=== PATIENT | male | born 1960 | race Caucasian/White ===

== ENCOUNTER → 2018-01-24 09:01 | Outpatient (CLI) | payer OTHER, SELFPAY ==
[2018-01-24 12:07] LABS: Absolute Lymphocyte Count 1.07 X10^3/ul (0.83-4.51); Absolute Neutrophil Count 2.5 X10^3/uL (2.0-7.7); Basophil# 0.03 X10^3/uL; Basophil% 0.7 % (0-1); Eosinophil# 0.19 X10^3/uL; Eosinophils% 4.7 % (0-5); Hematocrit 45.9 % (40-54); Hemoglobin 15.6 g/dl (13.0-16.5); Lymphocyte # 1.07 X10^3/ul (4.0); Lymphocyte % 26.6 % (19-41); Mean Corpuscular Hgb 28.3 pg (27.0-32.0); Mean Corpuscular Volume 83.3 fL (80-94); Mean Platelet Vol. 11.5 fl (6.2-12.0); Monocyte# 0.26 X10^3/uL; Monocyte% 6.5 % (0-10); Neutrophil # 2.47 X10^3/uL (2.7-7.7); Neutrophil % 61.3 % (47-70); Platelet Count 162 K/mm3 (150-450); RBC Distribution Width CV 13.8 % (11.6-14.6); Red Blood Count 5.51 M/mm3 (4.6-6.2)
[2018-01-24 12:08] LABS: POSITIVE COUNT NO; POSITIVE DIFFERENTIAL NO; POSITIVE MORPHOLOGY NO
[2018-01-24 12:23] LABS: ALB/GLOB Ratio 1.2 RATIO (0.9-2.4); AST(SGOT) 27 U/L (15-37); Alanine Aminotransfer ALT/SGPT 46 U/L (16-61); Albumin, Serum 4.2 g/dL (3.2-5.0); Alkaline Phosphatase 77 U/L (45-117); Anion Gap 10 (5-15); BUN 14 mg/dL (7-18); BUN/Creat Ratio 12.8 RATIO (10-20); Calcium,Total 8.7 mg/dL (8.5-10.1); Chloride 107 mmol/L (98-107); Cholesterol 162 mg/dL (200); Creatinine, Serum 1.09 mg/dL (0.70-1.30); EST Glomerular Filtration Rate 74 mL/min (>60); Est Glom Filt Rate - Afr Amer 89 mL/min (>60); Globulin 3.4 g/dL (2.2-4.2); Glucose 86 mg/dL (74-106); High Density Lipoprotein 37 mg/dL; PSA,Total - Annual Screen 0.38 ng/mL (0.00-4.00); Protein, Total 7.6 g/dL (6.4-8.2); Sodium Level 143 mmol/L (136-145); Triglycerides 148 mg/dL; Very Low Density Lipoprotein 30 mg/dL (5-40)
[2018-01-31 12:08] LABS: Testosterone, Free 8.43 ng/dL (5.00-21.00)
[2018-01-31 14:23] LABS: Testosterone, % Free 2.57 % (1.50-4.20); Testosterone, Total 328 ng/dL (264-916)
== END ==
PROVIDERS: Family Provider Family Medicine; PCP Family Medicine; Visit Provider Family Medicine
DX: Z00.01 Encounter for general adult medical examination with abnormal findings (principal); E29.1 Testicular hypofunction; Z12.5 Encounter for screening for malignant neoplasm of prostate
CPT/HCPCS: 36415; 80053; 80061; 84153; 84402; 84403; 85025; G0103

== ENCOUNTER → 2018-10-31 06:35 | Outpatient (CLI) | payer OTHER, SELFPAY ==
--- NOTE | 2018-10-31 06:45 | MRI_ITS ---
STUDY: MRI CERVICAL SPINE WITHOUT CONTRAST REASON FOR EXAM: Male, 58 years old. Numbness in neck and arms for several years TECHNIQUE: Standardized fat and water weighted pulse sequences were obtained in the sagittal and axial planes. COMPARISON: None FINDINGS: There is no tonsillar ectopia. There is a normal cervicomedullary junction. The cervical spinal cord is of normal morphology and signal intensity and shows no evidence of myelomalacia, contusion or myelopathy. The cervical spine itself shows normal alignment and curvature with no acute fractures or dislocations and no abnormal marrow infiltrative processes. There is disc space narrowing at C6-C7 with a spur from the anterior inferior corner of C6 The craniovertebral junction is normal. The tectorial membrane is intact. C2-3: Normal endplates. Normal disc height, signal and morphology. Normal central canal and intervertebral neural foramina. C3-4: Normal endplates. Normal disc height, signal and morphology. Normal central canal and intervertebral neural foramina. C4-5: Normal endplates. Normal disc height, signal and morphology. Normal central canal and intervertebral neural foramina. C5-6: Normal endplates. Normal disc height, signal and morphology. Normal central canal and intervertebral neural foramina .. C6-7: Disc space narrowing with a spur from the anterior inferior corner of C6. An uncinate spur narrows the right intervertebral foramen. No focal disc protrusion or extrusion. C7-T1: Normal endplates. There is 8.5 x 3.4 mm right paracentral disc protrusion with impingement on the exiting T1 nerve root.. Normal central canal and intervertebral neural foramina.. A disc protrusion/extrusion is noted in the sagittal sequences at T2-T3. 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 An Uncinate spur narrows the right intervertebral foramen at the C6-C7 level. An 8.5 x 3.4 mm right paracentral disc protrusion at the C7-T1 level with impingement on the exiting right T1 nerve roots. There is disc protrusion or extrusion at the T2-T3 level. It has a of 8.7 mm and an anteroposterior dimension of 4.6 mm. No axial images at the site were included in the examination Electronically Signed: Cayetano Hill MD at 9:30 EDT Tel , Service support ,
--- NOTE | 2018-10-31 07:20 | RAD_ITS ---
STUDY: X-RAY - ORBITS REASON FOR EXAM: Male, 58 years old. This study is being performed as a clearance examination for exclusion of orbital metal, prior to the performance of an MRI examination. TECHNIQUE: 2 view(s) of the orbits were obtained. COMPARISON: None. FINDINGS: Normal bilateral orbits without a metallic orbital foreign body. Normal visualized facial bones. Normal paranasal sinuses. The soft tissue structures are unremarkable. RAD/Orbits for Foreign Body IMPRESSION: No demonstrated metallic orbital foreign body. The patient is cleared for an MRI examination. Electronically Signed: Rohit Draper, at 8:22 EDT , Service support ,
[2018-10-31 07:35] LABS: Erythrocyte Sedimentation Rate 4 mm/hr (0-20)
[2018-10-31 07:53] LABS: ALB/GLOB Ratio 1.2 RATIO (0.9-2.4); AST(SGOT) 27 U/L (15-37); Alanine Aminotransfer ALT/SGPT 42 U/L (16-61); Albumin, Serum 3.9 g/dL (3.2-5.0); Alkaline Phosphatase 76 U/L (45-117); Anion Gap 7 (5-15); BUN 13 mg/dL (7-18); BUN/Creat Ratio 11.4 RATIO (10-20); CRP < 2.90 mg/L (0.0-3.0); Calcium,Total 8.5 mg/dL (8.5-10.1); Chloride 110 mmol/L (98-107); Creatinine, Serum 1.14 mg/dL (0.70-1.30); EST Glomerular Filtration Rate 70 mL/min (>60); Est Glom Filt Rate - Afr Amer 85 mL/min (>60); Globulin 3.3 g/dL (2.2-4.2); Glucose 107 mg/dL (74-106); Potassium 4.2 mmol/L (3.5-5.1); Protein, Total 7.2 g/dL (6.4-8.2); Rheumatoid Factor < 10.0 IU/mL (<15); Sodium Level 143 mmol/L (136-145); Thyroid Stim Hormone (TSH) 2.47 uIU/mL (0.358-3.74)
[2018-11-03 14:07] LABS: PROEL- A/G Ratio 1.6 (0.7-1.7); PROEL- Albumin 4.2 g/dL (2.9-4.4); PROEL- Alpha-1 Globulin 0.2 g/dL (0.0-0.4); PROEL- Alpha-2 Globulin 0.6 g/dL (0.4-1.0); PROEL- Beta Globulin 1.1 g/dL (0.7-1.3); PROEL- Gamma Globulin 0.9 g/dL (0.4-1.8); PROEL- Globulin, Total 2.7 g/dL (2.2-3.9); PROEL- TOTAL PROTEIN 6.9 g/dL (6.0-8.5)
[2018-11-04 12:03] LABS: ANTINUCLEAR ANTIBODIES DIRECT Negative (Negative)
[2018-11-04 12:08] LABS: PROELU- Albumin, Urine 26.4 % (.); PROELU- Alpha-1-Globulin,Ur 1.4 % (.); PROELU- Alpha-2-Globulin,Ur 11.7 % (.); PROELU- Beta Globulin, Ur 24.3 % (.); PROELU- Gamma Globulin, Ur 36.3 % (.); Total Protein, Ur 5.5 mg/dL (Not Estab.)
== END ==
PROVIDERS: Family Provider Family Medicine; PCP Family Medicine; Referring Provider Psychiatry & Neurology Neurology; Visit Provider Psychiatry & Neurology Neurology
DX: M54.16 Radiculopathy, lumbar region (principal); G90.09 Other idiopathic peripheral autonomic neuropathy
CPT/HCPCS: 36415; 70030; 72141; 80053; 84165; 84166; 84443; 85652; 86038; 86140; 86431

== ENCOUNTER → 2018-12-09 06:53 | Outpatient (CLI) | payer OTHER, SELFPAY ==
--- NOTE | 2018-12-09 09:52 | NEURO_ITS ---
NCS and/or EMG Patient Report Ordering Doctor: Manuelito Gutierrez - Please copy to Dr. Santiago DATE OF SERVICE: 12/09/18 This is a right upper and right lower extremity nerve conduction study and EMG performed on this 58-year-old male who noted initially in August 2018 tongue biting and has noted atrophy on the right side of his tongue and tongue fasciculations. The tongue biting has improved. He also has decreased sensation in his hands and feet bilaterally and is concerned with ALS. There is a family history of neuropathy in his mother. He is not diabetic and does not drink significant quantities of alcohol. On examination he has hammertoe deformities bilaterally in his lower extremities and osteoarthritic changes. He has no upper motor neuron signs and no hyperreflexia. MRI of his cervical spine performed 10/31 was reviewed which shows mild arthritic changes but no significant canal or foraminal stenosis. Right upper and right lower extremity nerve conduction study is performed. In the right lower extremity the sural sensory response is absent, and there is moderate to severe slowing of the common peroneal motor response and the tibial motor response. These nerves also demonstrate severe reduction of amplitude and prolongation of distal latencies. The F waves from the tibial and common peron eal nerves are severely prolonged and the H reflex responses from the bilateral tibial nerves are reduced. In the right upper extremity there is mild prolongation of the median motor and sensory distal latency with mild reduction of conduction velocities. The ulnar motor and sensory response is normal in the radial sensory response is normal. Right upper and right lower extremity needle electromyography was performed. In the right lower extremity muscles evaluated included the extensor digitorum brevis, abductor hallucis, medial gastrocnemius, anterior tibialis, vastus medialis and vastus lateralis muscles. In the right upper extremity, muscles evaluated included the first dorsal interosseous, abductor pollicis brevis, brachioradialis, biceps, triceps and deltoid muscles. There was abnormal recruitment with large motor units and distal muscles in the upper and lower extremity but pathologic spontaneous activity was absent in all muscles tested. This is a pattern consistent with length dependent polyneuropathy. Impression: This is an abnormal electrophysiologic study most consistent with chronic moderate to severe peripheral neuropathy likely idiopathic however a genetic component is suspicious given his family history. There are no upper motor neuron signs whatsoever on electrophysiologic testing or on examination which essentially rules out upper motor neuron disease including ALS, however tongue fasciculations are unusual for any peripheral neuropathy. Further testing can include evaluation for multifocal motor neuropathy with block, lumbar puncture, serum protein electrophoresis, hepatic function studies, and other neuropathy testing.
== END ==
PROVIDERS: Family Provider Family Medicine; PCP Family Medicine; Referring Provider Psychiatry & Neurology Neurology; Visit Provider Psychiatry & Neurology Neurology
DX: M54.16 Radiculopathy, lumbar region (principal); G90.09 Other idiopathic peripheral autonomic neuropathy
CPT/HCPCS: 95886; 95911

== ENCOUNTER → 2019-02-05 15:50 | Outpatient (CLI) | payer OTHER, SELFPAY ==
[2019-02-05 17:46] LABS: Erythrocyte Sedimentation Rate 9 mm/hr (0-20)
[2019-02-05 17:48] LABS: CRP 7.25 mg/L (0.0-3.0); PSA,Total - Annual Screen 0.62 ng/mL (0.00-4.00); Uric Acid 6.6 mg/dL (3.5-7.2)
== END ==
PROVIDERS: Family Provider Family Medicine; PCP Family Medicine; Visit Provider Family Medicine
DX: M79.89 Other specified soft tissue disorders (principal); Z12.5 Encounter for screening for malignant neoplasm of prostate
CPT/HCPCS: 36415; 84153; 84550; 85652; 86140; G0103

== ENCOUNTER → 2019-02-18 06:09 | Outpatient (CLI) | payer OTHER, SELFPAY ==
[2019-02-18 07:33] LABS: Erythrocyte Sedimentation Rate 4 mm/hr (0-20)
[2019-02-18 07:34] LABS: Absolute Neutrophil Count 2.4 X10^3/uL (2.0-7.7); Basophil# 0.05 X10^3/uL; Basophil% 1.2 % (0-1); Eosinophil# 0.22 X10^3/uL; Eosinophils% 5.3 % (0-5); Hematocrit 48.8 % (40-54); Hemoglobin 16.1 g/dL (13.0-16.5); Lymphocyte % 28.8 % (19-41); Mean Corpuscular Hgb 28.3 pg (27.0-32.0); Mean Corpuscular Volume 85.8 fL (80-94); Mean Platelet Vol. 11.5 fl (6.2-12.0); Monocyte# 0.28 X10^3/uL; Monocyte% 6.7 % (0-10); NRBC Flagged by Analyzer 0 % (0-5); Neutrophil # 2.41 X10^3/uL (2.7-7.7); Platelet Count 163 K/mm3 (150-450); RBC Distribution Width SD 40.1 fl (35.1-43.9); Red Blood Count 5.69 M/mm3 (4.6-6.2); White Blood Count 4.2 K/mm3 (4.4-11.0)
[2019-02-18 08:03] LABS: ALB/GLOB Ratio 1.2 RATIO (0.9-2.4); AST(SGOT) 25 U/L (15-37); Alanine Aminotransfer ALT/SGPT 41 U/L (16-61); Albumin, Serum 4.1 g/dL (3.2-5.0); Alkaline Phosphatase 77 U/L (45-117); Anion Gap 5 (5-15); BUN 19 mg/dL (7-18); BUN/Creat Ratio 16.1 RATIO (10-20); Bilirubin, Direct 0.18 mg/dL (0.00-0.30); CRP < 2.90 mg/L (0.0-3.0); Calcium,Total 8.7 mg/dL (8.5-10.1); Chloride 108 mmol/L (98-107); Creatinine, Serum 1.18 mg/dL (0.70-1.30); EST Glomerular Filtration Rate 67 mL/min (>60); Est Glom Filt Rate - Afr Amer 81 mL/min (>60); Globulin 3.4 g/dL (2.2-4.2); Glucose 106 mg/dL (74-106); Protein, Total 7.5 g/dL (6.4-8.2); Sodium Level 140 mmol/L (136-145); Thyroid Stim Hormone (TSH) 1.83 uIU/mL (0.358-3.74)
[2019-02-18 08:20] LABS: Hemoglobin A1c 5.4 % (4.2-6.3)
[2019-02-18 09:31] LABS: Vitamin B12 525 pg/mL (211-911)
[2019-02-19 16:07] LABS: SJOGREN'S Anti-SS-A test < 0.2 AI (0.0-0.9); SJOGREN'S Anti-SS-B test < 0.2 AI (0.0-0.9)
[2019-02-19 17:19] LABS: ANTINUCLEAR ANTIBODIES DIRECT Negative (Negative)
[2019-02-24 12:07] LABS: Cytoplasmic Ab (C-ANCA) <1:20 titer (Neg:<1:20); PROEL- A/G Ratio 1.5 (0.7-1.7); PROEL- Albumin 4.2 g/dL (2.9-4.4); PROEL- Alpha-1 Globulin 0.2 g/dL (0.0-0.4); PROEL- Alpha-2 Globulin 0.6 g/dL (0.4-1.0); PROEL- Beta Globulin 1.1 g/dL (0.7-1.3); PROEL- Gamma Globulin 0.9 g/dL (0.4-1.8); PROEL- Globulin, Total 2.8 g/dL (2.2-3.9); PROELU- Alpha-1-Globulin,Ur 5.3 % (.); PROELU- Alpha-2-Globulin,Ur 18.8 % (.); PROELU- Beta Globulin, Ur 30.3 % (.); PROELU- Gamma Globulin, Ur 19.6 % (.); Total Protein, Ur 8.8 mg/dL (Not Estab.)
[2019-02-24 16:33] LABS: Arsenic 7245 9 ug/L (2-23); Lead, Blood 2 ug/dL (0-4); Perinuclear Ab (P-ANCA) <1:20 titer (Neg:<1:20)
== END ==
PROVIDERS: Family Provider Family Medicine; PCP Family Medicine; Referring Provider Nurse Practitioner Family; Visit Provider Nurse Practitioner Family
DX: G62.9 Polyneuropathy, unspecified (principal)
CPT/HCPCS: 80053; 82175; 82248; 82607; 83036; 83655; 83825; 84165; 84166; 84443; 85025; 85652; 86038; 86140; 86235; 86256

== ENCOUNTER → 2019-11-16 14:21 | Outpatient (CLI) | payer SELFPAY ==
--- NOTE | 2019-11-16 14:24 | RAD_ITS ---
STUDY: X-RAY CHEST REASON FOR EXAM: Male, 59 years old. TECHNIQUE: PA and lateral views of the chest. COMPARISON: None. FINDINGS: The lungs are clear and expanded. There is no demonstrated pleural abnormality. Normal size heart. Normal mediastinum and nam. Normal visualized pulmonary arteries. Normal visualized aortic arch and descending thoracic aorta. There are diffuse degenerative changes of the visualized thoracic spine. Healed right lower rib fracture. There is no demonstrated abnormality of the visualized soft tissue structures of the upper abdomen. RAD/Chest PA and Lateral IMPRESSION: No acute abnormality is seen. Electronically Signed: Rohit Draper, at 15:13 EDT , Service support ,
== END ==
PROVIDERS: PCP Family Medicine; Referring Provider Family Medicine; Visit Provider Family Medicine
DX: R07.81 Pleurodynia (principal)
CPT/HCPCS: 71046

== ENCOUNTER → 2020-09-21 11:25 | Outpatient (CLI) | payer OTHER, SELFPAY ==
--- NOTE | 2020-09-21 11:29 | RAD_ITS ---
INDICATION: RALES RLL EXAMINATION/TECHNIQUE: X-RAY - XR Chest 2 Views COMPARISON: 11/16/2019. FINDINGS: The lungs are clear. The cardiomediastinal silhouette is unremarkable. No pleural effusion or pneumothorax. No acute osseous abnormalities. Diffuse degenerative changes of the spine. RAD/Chest PA and Lateral IMPRESSION: No acute radiographic abnormalities. Electronically Signed: Win Singer MD at 21:24 EDT Tel , Service support ,
[2020-09-21 16:58] LABS: Probe Check PASS; Specimen Processing Control PASS
== END ==
PROVIDERS: PCP Family Medicine; Referring Provider Family Medicine; Visit Provider Family Medicine
DX: R09.89 Other specified symptoms and signs involving the circulatory and respiratory systems (principal); R05 Cough
CPT/HCPCS: 71046; 87635; U0002

== ENCOUNTER → 2021-04-24 | Outpatient (CLI) | payer OTHER, SELFPAY | END | disposition home or self-care (01) | PROVIDERS: Visit Provider Family Medicine | DX: Z20.822 Contact with and (suspected) exposure to COVID-19 (principal) | CPT/HCPCS: 87633; 87635; U0005; U0003 ==

== ENCOUNTER → 2021-05-08 | Outpatient (CLI) | payer OTHER, SELFPAY | END | disposition home or self-care (01) | LOC: LABSPEC 15:29 | PROVIDERS: Visit Provider Family Medicine | DX: U07.1 COVID-19 (principal) | CPT/HCPCS: 87635; U0005; U0003 ==

== ENCOUNTER 2021-05-11 12:07 | Outpatient (CLI) | payer OTHER, SELFPAY ==
[2021-05-11 12:24] VITALS: BP 138/84; PULSE 69; RESP 16; TEMP 36.4; O2SAT 100; BMI 29.8
[2021-05-11] MEDS: 0.9% Saline Lock 10 ML Syringe IV (12:24)
[2021-05-11 12:58] VITALS: BP 122/74; PULSE 63; RESP 13; TEMP 36.4; O2SAT 99
[2021-05-11 13:48] VITALS: BP 108/83; PULSE 59; RESP 16; TEMP 36.3; O2SAT 100
== END 2021-05-11 14:00 | disposition home or self-care (01) ==
LOC: MS3OUT 12:07 → MS3 12:08
PROVIDERS: Referring Provider Nurse Practitioner Adult Health; Visit Provider Nurse Practitioner Adult Health
DX: U07.1 COVID-19 (principal)
CPT/HCPCS: J7050; M0245; Q0245; A4216

== ENCOUNTER → 2021-11-17 | Outpatient (CLI) | payer OTHER, SELFPAY ==
[2021-11-17 12:05] LABS: Absolute Lymphocyte Count 1.12 X10^3/uL (0.83-4.51); Absolute Neutrophil Count 2.9 X10^3/uL (2.0-7.7); Basophil# 0.04 X10^3/uL; Basophil% 0.9 % (0-1); Eosinophil# 0.22 X10^3/uL; Eosinophils% 4.9 % (0-5); Hematocrit 44.4 % (40-54); Hemoglobin 14.8 g/dL (13.0-16.5); Lymphocyte # 1.12 X10^3/ul (0.83-4.51); Lymphocyte % 24.7 % (19-41); Mean Corp Hgb Conc 33.3 g/dL (32-36); Mean Corpuscular Hgb 28.1 pg (27.0-32.0); Mean Corpuscular Volume 84.3 fL (80-94); Mean Platelet Vol. 10.9 fl (6.2-12.0); Monocyte% 6.6 % (0-10); NRBC Flagged by Analyzer 0 % (0-5); Neutrophil # 2.85 X10^3/uL (2.7-7.7); Neutrophil % 62.9 % (47-70); Platelet Count 152 K/mm3 (150-450); RBC Distribution Width CV 13.4 % (11.6-14.6); RBC Distribution Width SD 41.5 fl (35.1-43.9); Red Blood Count 5.27 M/mm3 (4.6-6.2); White Blood Count 4.5 K/mm3 (4.4-11.0)
[2021-11-17 12:47] LABS: Anion Gap 5 (5-15); BUN 20 mg/dL (7-18); BUN/Creat Ratio 18.5 RATIO (10-20); Calcium,Total 8.8 mg/dL (8.5-10.1); Chloride 107 mmol/L (98-107); Cholesterol 167 mg/dL (200); Creatinine, Serum 1.08 mg/dL (0.70-1.30); EST Glomerular Filtration Rate 74 mL/min (>60); Est Glom Filt Rate - Afr Amer 89 mL/min (>60); Glucose 95 mg/dL (74-106); High Density Lipoprotein 42 mg/dL; PSA,Total - Annual Screen 0.42 ng/mL (0.00-4.00); Potassium 4.1 mmol/L (3.5-5.1); Sodium Level 140 mmol/L (136-145); Triglycerides 89 mg/dL; Very Low Density Lipoprotein 18 mg/dL (5-40)
[2021-11-18 20:11] LABS: ALB/GLOB Ratio 1.4 RATIO (0.9-2.4); AST(SGOT) 24 U/L (15-37); Alanine Aminotransfer ALT/SGPT 34 U/L (16-61); Albumin, Serum 4.1 g/dL (3.2-5.0); Alkaline Phosphatase 69 U/L (45-117); Anion Gap 5 (5-15); BUN 21 mg/dL (7-18); BUN/Creat Ratio 18.4 RATIO (10-20); Calcium,Total 8.7 mg/dL (8.5-10.1); Chloride 109 mmol/L (98-107); Creatinine, Serum 1.14 mg/dL (0.70-1.30); EST Glomerular Filtration Rate 69 mL/min (>60); Est Glom Filt Rate - Afr Amer 84 mL/min (>60); Globulin 2.9 g/dL (2.2-4.2); Glucose 93 mg/dL (74-106); Potassium 4.3 mmol/L (3.5-5.1); Sodium Level 141 mmol/L (136-145)
== END | disposition home or self-care (01) ==
LOC: MTLAB 10:09
PROVIDERS: PCP Family Medicine; Referring Provider Family Medicine; Visit Provider Family Medicine
DX: Z00.00 Encounter for general adult medical examination without abnormal findings (principal); Z12.5 Encounter for screening for malignant neoplasm of prostate
CPT/HCPCS: 36415; 80048; 80053; 80061; 84153; 85025; G0103

== ENCOUNTER 2022-02-02 07:38 | Emergency (ER) | payer OTHER, SELFPAY ==
[2022-02-02 07:39] VITALS: BP 114/79; PULSE 76; RESP 18; TEMP 36.6; O2SAT 94; BMI 29.0
--- NOTE | 2022-02-02 07:52 | ED.VIS.DENTA ---
HPI History of Present Illness Chief Complaint: Dental Informant: patient and spouse/S.O. Onset/Context/Timing Onset: Yesterday Context: Sudden Onset Timing: Continuous Quality: Pain Location: Lower right molars Current Severity: Mild Maximum Severity: Moderate Worsened by: Cold liquids Relieved by: NSAIDs and Topicals Associated Symptoms Assocated Symptom - Dental: fever, jaw swelling, face swelling and cold sensitivity; Negative for hot sensitivity Narrative Narrative: Patient is a 61-year-old male on no medication with no allergies who contacted his dentist because of dental pain and concern for infection. Dentist prescribed him penicillin. He presents because of increased pain and facial swelling. He denies change in voice. He denies difficulty swallowing. He denies a traumatic fever, heart murmur, SBE or being immune suppressed. He reports documented temperature of 101.4 ?F. He also reported chills. He denies nausea, vomiting or diarrhea. He denies rash. Prior similar symptoms: No Recent Illness/Hospitalization: No PFSH PFSH Medical History no medical history no medical history Home Medications oxycodone-acetaminophen 5 mg-325 mg tablet 1 tab PO Q6H PRN PRN Pain 3 days #12 TABLETS 02/02/22 [Rx Last Taken Unknown] Allergy/AdvReac Type Severity Reaction Status Date / Time No Known Allergies Allergy Verified 02/02/22 07:44 Surgical History (Updated 02/02/22 @ 07:53 by Susannah Marshall) History of bilateral cataract extraction History of laparoscopic appendectomy Social History (Updated 02/02/22 @ 07:[address] Patricio Marroquin MD) household members: spouse Smoking Status: Never smoker alcohol intake: current substance use type: does not use ROS ROS ED Constitutional Constitutional ED: Reports chills and fever(s); Denies subjective, sweats or weight loss Eyes Eyes: Denies blurry vision or change in vision ENT ENT ED: Reports other Details: Per HPI narrative ; Denies ear pain, rhinorrhea or sore throat Cardiovascular Cardiovascular: Denies chest pain or palpitations Respiratory/Chest Respiratory/Chest: Denies cough, dyspnea or dyspnea on exertion Gastrointestinal Gastrointestinal: Denies diarrhea, nausea or vomiting Musculoskeletal Musculoskeletal: Denies arthralgias, back pain, myalgias or neck pain Integumentary Reports abscess; Denies Abrasions or rash Hematologic/Lymphatic Hematologic/Lymphatic: Denies easy bleeding, easy bruising or lymphadenopathy EXAM Physical Exam Const Vital Signs: 02/02/22 07:39 Temperature 97.8 F Temperature Source Temporal Pulse Rate 76 Respiratory Rate 18 Blood Pressure 114/79 Blood Pressure Mean 90 Pulse Ox 94 Oxygen Delivery Method Room Air Positive well nourished and well developed; Negative for cachectic or unkempt General Appearance ED: well developed and NAD; Negative for unkempt, cachectic or pallor Nutritional Appearance: Negative for cachectic HEENT HEENT Narrative: There is right-sided facial swelling without evidence of cellulitis. He has poor dentition. There is evidence of peridental disease and gingivitis. There is no trismus. There is no evidence of Ludewig's angina. There is no drooling. Ears normal. Nares patent. Uvula midline. No deviation of the tongue with protrusion. There is no erythema or exudate the posterior pharynx. Mouth ED: Yes oral and palatal mucosa normal, Yes lips normal, Yes tongue normal, Yes salivary gland normal and No mouth trauma Mouth: oral and palatal mucosa normal, lips normal, tongue normal, salivary gland normal and No mouth trauma Teeth and Gingiva: caries, gingiva abnormal, poor dentition and teeth discoloration Throat: posterior oropharynx normal Eyes PERRL and EOMs intact bilaterally General Eye ED: Negative for pale conjunctiva or scleral icterus Neck no lymphadenopathy, supple and no JVD Lymph Lymphatic: no lymphadenopathy noted Resp normal respiratory effort, no retractions and clear to auscultation bilaterally Cardio regular rate, regular rhythm, S1 normal heart sound, S2 normal heart sound and no murmurs Extremity normal to inspection and no joint enlargement Neuro oriented x3 and moves all extremities Sensorium / Orientation: alert Psych mental status grossly normal Appearance: Negative for unkempt Skin no rashes or lesions noted and no wounds General Skin Exam: Negative for pallor MDM MDM MDM Narrative Medical decision making narrative: Patient with poor dentition dental caries and dental abscess. There is fluctuance buccal side of the right lower molars tooth #30 and 31. And inferior alveolar nerve block was placed. We will perform I&D of abscess since there is significant fluctuance and facial swelling. Procedures Other Procedures Procedure(s): 1. Right inferior alveolar nerve block 2. Incision and drainage of peridental abscess Small sukumar was made using 11 blade. There was purulent material that flowed freely from the periodontal abscess. We will have patient rinse his mouth. He was instructed follow-up with his dentist. He was prescribed open analgesia. Discharge Plan Triage Chief Complaint: Dental ED Provider: Patricoi Marroquin Dx/Rx/DC Orders Clinical Impression: Acute periodontal abscess, Dental caries extending into dentine, Symptomatic irreversible pulpitis, Chronic periodontal disease, Gingivitis Instructions: ED Dental Abscess Prescriptions: New oxycodone-acetaminophen [oxycodone-acetaminophen] 5-325 mg tablet 1 tab PO Q6H PRN PRN (Reason: Pain) 3 Days Qty: 12 0RF Primary Care Provider: Jadiel Santiago Referrals: Jadiel Santiago, DO [Primary Care Provider] - Dentist,Your [STAFF PHYSICIAN] - 3-5 Days Activity Restrictions/Additional Instructions: 1. Continue to take the penicillin you are prescribed by your dentist until gone 2. You may take either 4 ibuprofen tablets every 8 hours or 2 Aleve tablets every 12 hours for the next 3 to 5 days. Disposition Disposition: Home, Self Care
== END 2022-02-02 08:41 | disposition home or self-care (01) ==
PROVIDERS: Emergency Provider Emergency Medicine; PCP Family Medicine; Visit Provider Emergency Medicine
DX: K05.219 Aggressive periodontitis, localized, unspecified severity (principal); K02.9 Dental caries, unspecified; K04.02 Irreversible pulpitis; K05.10 Chronic gingivitis, plaque induced
CPT/HCPCS: 10060; 41800; 64999; 99283

== ENCOUNTER → 2022-12-18 | Outpatient (CLI) | payer OTHER, SELFPAY ==
[2022-12-18 18:18] LABS: Absolute Lymphocyte Count 1.37 X10^3/uL (0.83-4.51); Absolute Neutrophil Count 2.7 X10^3/uL (2.0-7.7); Basophil# 0.04 X10^3/uL; Basophil% 0.9 % (0-1); Eosinophil# 0.19 X10^3/uL; Eosinophils% 4.2 % (0-5); Hematocrit 45.2 % (40-54); Hemoglobin 14.8 g/dL (13.0-16.5); Lymphocyte # 1.37 X10^3/ul (0.83-4.51); Lymphocyte % 30.1 % (19-41); Mean Corp Hgb Conc 32.7 g/dL (32-36); Mean Corpuscular Hgb 27.6 pg (27.0-32.0); Mean Corpuscular Volume 84.2 fL (80-94); Mean Platelet Vol. 11.2 fl (6.2-12.0); Monocyte# 0.27 X10^3/uL; Monocyte% 5.9 % (0-10); NRBC Flagged by Analyzer 0 % (0-5); Neutrophil # 2.67 X10^3/uL (2.7-7.7); Neutrophil % 58.7 % (47-70); Platelet Count 172 K/mm3 (150-450); RBC Distribution Width CV 13.5 % (11.6-14.6); RBC Distribution Width SD 41.7 fl (35.1-43.9); Red Blood Count 5.37 M/mm3 (4.6-6.2); White Blood Count 4.6 K/mm3 (4.4-11.0)
[2022-12-18 18:35] LABS: Vitamin B12 513 pg/mL (211-911)
[2022-12-18 18:43] LABS: ALB/GLOB Ratio 1.3 RATIO (0.9-2.4); AST(SGOT) 25 U/L (15-37); Alanine Aminotransfer ALT/SGPT 33 U/L (16-61); Albumin, Serum 4.2 g/dL (3.2-5.0); Alkaline Phosphatase 76 U/L (45-117); Anion Gap 5 (5-15); BUN 15 mg/dL (7-18); Calcium,Total 8.7 mg/dL (8.5-10.1); Chloride 111 mmol/L (98-107); Cholesterol 167 mg/dL (200); Creatinine, Serum 1.15 mg/dL (0.70-1.30); EST Glomerular Filtration Rate 68 mL/min (>60); Est Glom Filt Rate - Afr Amer 83 mL/min (>60); Globulin 3.2 g/dL (2.2-4.2); Glucose 91 mg/dL (74-106); High Density Lipoprotein 41 mg/dL; PSA,Total - Annual Screen 0.58 ng/mL (0.00-4.00); Potassium 4.1 mmol/L (3.5-5.1); Protein, Total 7.4 g/dL (6.4-8.2); Sodium Level 141 mmol/L (136-145); Triglycerides 129 mg/dL; Very Low Density Lipoprotein 26 mg/dL (5-40)
== END | disposition home or self-care (01) ==
PROVIDERS: PCP Family Medicine; Referring Provider Family Medicine; Visit Provider Family Medicine
DX: Z00.00 Encounter for general adult medical examination without abnormal findings (principal); Z12.5 Encounter for screening for malignant neoplasm of prostate; R53.83 Other fatigue
CPT/HCPCS: 36415; 80053; 80061; 82607; 84153; 84403; 84443; 85025; G0103

== ENCOUNTER 2025-05-07 10:14 | Outpatient (CLI) | payer OTHER, SELFPAY ==
[2025-05-07 12:31] LABS: Hematocrit 46.0 % (40-54); Hemoglobin 15.0 g/dL (13.0-16.5); Immature Granulocytes Count 0.010 X10^3/uL (0.0-0.0); Mean Corp Hgb Conc 32.6 g/dL (32-36); Mean Corpuscular Volume 85.5 fL (80-94); Mean Platelet Vol. 11.4 fl (6.2-12.0); NRBC Flagged by Analyzer 0 % (0-5); Platelet Count 168 K/mm3 (150-450); RBC Distribution Width CV 13.1 % (11.6-14.6); RBC Distribution Width SD 40.9 fl (35.1-43.9); Red Blood Count 5.38 M/mm3 (4.6-6.2); White Blood Count 4.5 K/mm3 (4.4-11.0)
[2025-05-07 13:19] LABS: AST(SGOT) 27 U/L (<=37); Alanine Aminotransfer ALT/SGPT 27 U/L (<=46); Albumin, Serum 4.6 g/dL (3.4-4.8); Alkaline Phosphatase 71 U/L (40-129); Anion Gap 10 (5-15); BUN 17 mg/dL (4-19); BUN/Creat Ratio 14.7 RATIO (10-20); Calcium,Total 9.7 mg/dL (7.6-11.0); Carbon Dioxide 27.0 mmol/L (21.0-32.0); Chloride 104 mmol/L (98-108); Globulin 2.6 g/dL (2.2-4.2); Glucose 105 mg/dL (70-99); Magnesium 2.3 mg/dL (1.5-2.2); Potassium 5.0 mmol/L (3.3-5.1)
== END 2025-05-07 23:59 | disposition home or self-care (01) ==
LOC: BFHLAB 10:15
PROVIDERS: PCP Family Medicine; Visit Provider Family Medicine
DX: R00.2 Palpitations (principal)
CPT/HCPCS: 36415; 80053; 83735; 84443; 85025